=== PATIENT | female | born 1965 | race Caucasian/White ===

== ENCOUNTER 2025-02-02 08:53 | Day surgery (SDC) | payer BC, SELFPAY ==
[2025-02-02 09:05] VITALS: BP 114/80; PULSE 92; RESP 17; TEMP 36.1; O2SAT 94; BMI 33.3
--- NOTE | 2025-02-02 09:32 | ANES.PREANE2 ---
Pre-Anesthetic Assessment Height/Weight: Height 1.65 m Weight 90.718 kg Temp Pulse Resp BP Pulse Ox O2 Del Method 97.0 F L 92 17 114/80 94 Room Air 02/02/25 09:05 02/02/25 09:05 02/02/25 09:05 02/02/25 09:05 02/02/25 09:05 02/02/25 09:05 Operation Date: 02/02/25 10:00 Proposed Procedures p Colonoscopy 33489 G0105, R19.5(Not Applicable) - Reji Gallo MD Was Beta Mckenna taken within 24 hours: N/A Was Clonidine taken within 24 hours: N/A Last intake: Intake Last Liquid Date 02/01/25 Last Liquid Time 20:00 Last Solid Date 01/31/25 Last Solid Time 14:00 Airway Submandibular: within normal limits Cervical ROM: within normal limits Mallampati: Class II Dentition: full Pulmonary Asthma (allergies causes it , no rescue used recently) CV/HEM Hypertension None reported Hepatic None reported GI None reported Metabolic Thyroid Disease on levothyroxine - no dosage changes recently Neuropsych None reported Anesthetic Plan ASA status: 2 Anesthesia: Anesthesia Evaluation, General and MAC Medications/Allergies Home Medications ?Medication ?Instructions ?Recorded ?Confirmed ?Last Taken ?Type hydrochlorothiazide 25 mg tablet 25 mg PO DAILY 06/02/23 01/27/25 02/01/25 07:00 History levothyroxine 100 mcg capsule 100 mcg PO DAILY 06/02/23 01/27/25 02/01/25 07:00 History lisinopril 40 mg tablet 40 mg PO DAILY 06/02/23 01/27/25 02/01/25 07:00 History ondansetron 4 mg disintegrating 4 mg PO Q6H PRN nausea and 04/21/24 01/27/25 02/01/25 07:00 Rx tablet vomiting #30 tabs venlafaxine 50 mg tablet 50 mg PO DAILY 04/21/24 01/27/25 02/01/25 07:00 History Allergies Allergy/AdvReac Type Severity Reaction Status Date / Time No Known Allergies Allergy Verified 02/02/25 09:01 Current Medications Generic Name Dose Route Start Last Admin Trade Name Freq PRN Reason Stop Dose Admin Sodium Chloride 1,000 mls @ 15 mls/hr 02/02/25 08:55 02/02/25 09:14 Sodium Chloride 0.9% IV 02/03/25 08:54 15 mls/hr .Q24H PRN Administration COLONOSCOPY FLUIDS PFSH Anesthesia Social History Smoking and tobacco/nicotine status: never used tobacco/nicotine
--- NOTE | 2025-02-02 09:34 | W.PM.OPSUD ---
Surgery/Procedure H&P Update DATE OF PROCEDURE: February 02, 2025 DATE H&P PERFORMED: 01/07/25 H&P UPDATE INFORMATION: I have reviewed H&P completed within last 30 days, I have examined patient prior to procedure and No changes to prior documentation PLANNED PROCEDURE: Operation Date: 02/02/25 10:00 Proposed Procedures p Colonoscopy [id number] G0105, R19.5(Not Applicable) - Reji Gallo MD
[2025-02-02 10:09] VITALS: BP 97/71; PULSE 98; RESP 18; TEMP 36.2; O2SAT 97
[2025-02-02 10:22] VITALS: BP 123/76; PULSE 89; RESP 18; TEMP 36.3; O2SAT 95
--- NOTE | 2025-02-02 10:59 | ANE.PACU2 ---
Inpatient post-anesthesia follow up: Airway intact: Yes Vital signs: Temperature 97.4 F Pulse Rate 89 Respiratory Rate 18 Blood Pressure 123/76 Pulse Oximetry 95 Oxygen Delivery Me thod Room Air Oxygen Flow Rate Fraction of Inspir ed Oxygen Hydration adequate: Yes Nausea and vomiting: No Pain level: 1 Mental status: Baseline
== END 2025-02-02 10:59 | disposition home or self-care (01) ==
PROVIDERS: PCP Nurse Practitioner Family; Visit Provider Student in an Organized Health Care Education/Training Program
PROC: 0DJD8ZZ Inspection of Lower Intestinal Tract, Via Natural or Artificial Opening Endoscopic (ICD-10-PCS; CPT 45378; principal; 2025-02-02 10:00)
DX: D12.2 Benign neoplasm of ascending colon (principal); D12.5 Benign neoplasm of sigmoid colon; K63.5 Polyp of colon; I10 Essential (primary) hypertension; J45.909 Unspecified asthma, uncomplicated; E07.9 Disorder of thyroid, unspecified; R19.5 Other fecal abnormalities; Z79.890 Hormone replacement therapy
CPT/HCPCS: 45380; 45385; 88305; J2704; J7030